=== PATIENT | female | born 1995 | race Caucasian/White ===

== ENCOUNTER 2024-01-11 17:45 | Outpatient (RCR) | payer OTHER, SELFPAY ==
[2024-01-11 18:56] VITALS: BP 114/58; PULSE 81
== END 2024-04-10 23:59 | disposition home or self-care (01) ==
LOC: ANHOBOP 17:45
PROVIDERS: Visit Provider Obstetrics & Gynecology
DX: O36.8190 Decreased fetal movements, unspecified trimester, not applicable or unspecified (principal)
CPT/HCPCS: 59025

== ENCOUNTER 2024-02-16 14:49 | Outpatient (RCR) | payer OTHER, SELFPAY ==
[2024-02-14 17:59] LABS: Basophils Absolute Auto 0.1 K/mm3 (0.0-0.1); Eosinophils Absolute Auto 0.1 K/mm3 (0-0.3); Eosinophils Percent Auto 0.9 % (0-4.4); Hematocrit 35.6 % (37.0-47.0); Immature Granulocyte Absolute 0.83 K/mm3 (0.00-0.031); Immature Granulocyte Percent A 6.8 % (0-0.5); Lymphocytes Absolute Auto 2.15 K/mm3 (0.9-3.2); Lymphocytes Percent Auto 17.6 % (18.3-44.2); Mean Corpuscular HGB Conc 33.7 g/dl (32-36); Mean Corpuscular Hemoglobin 29.9 pg (26-34); Mean Corpuscular Volume 88.6 fl (80-100); Mean Platelet Volume 10.4 fl (7.4-10.4); Monocytes Absolute Auto 0.9 K/mm3 (0.1-0.6); Monocytes Percent Auto 7.5 % (2.6-8.5); Neutrophils Absolute Auto 8.1 K/mm3 (1.3-6.7); Neutrophils Percent Auto 66.2 % (45.5-73.1); Platelet Count Result 242 k/mm3 (150-375); Red Blood Count 4.02 M/mm3 (4.2-5.4); White Blood Count 12.2 K/mm3 (4.5-10.0)
[2024-02-14 18:09] LABS: Glucose 1 Hour PP 50gm Dose 116 mg/dL
[2024-02-14 18:19] LABS: Anisocytosis 1+; Hypochromasia 1+; Platelet Estimate Adequate (Adequate); Schistocytes None Seen
[2024-02-14 18:33] LABS: Free T4 Free Thyroxine 0.73 ng/dL (0.78-2.19)
[2024-02-14 18:50] LABS: HIV 1/2 Ab P24 Ag Result Negative (Negative)
[2024-02-15 05:57] LABS: T3 Free 2.8 pg/mL (2.3-4.2)
[2024-02-15 06:34] LABS: Rapid Plasma Reagin Non-Reactive (NonReactive)
[2024-02-16] MEDS: RHO(D) IMMUNE GLOBULIN 300 MCG/2 ML SYRINGE IM (16:59)
== END 2024-02-16 14:50 | disposition home or self-care (01) ==
LOC: ANHLAB 14:49
PROVIDERS: Visit Provider Obstetrics & Gynecology
DX: Z11.4 Encounter for screening for human immunodeficiency virus [HIV] (principal); Z11.3 Encounter for screening for infections with a predominantly sexual mode of transmission; Z29.13 Encounter for prophylactic Rho(D) immune globulin; O36.0190 Maternal care for anti-D [Rh] antibodies, unspecified trimester, not applicable or unspecified; E03.9 Hypothyroidism, unspecified; Z3A.00 Weeks of gestation of pregnancy not specified
CPT/HCPCS: 36415; 82947; 84439; 84443; 84480; 85025; 85461; 86592; 86703; 86850; 86900; 86901; 90384; 96372; G0432; J2790

== ENCOUNTER 2024-04-07 13:58 | Outpatient (CLI) | payer OTHER, SELFPAY ==
--- NOTE | ~2024-04-07 | US_ITS ---
EXAMINATION: US OB follow up DATE: 04/07/2024 15:11 INDICATION: Encounter for supervision of normal during third trimester. TECHNIQUE: Real-time ultrasound of the pelvis was performed. The interpreting radiologist was not pre sent for the study. COMPARISON: 03/05/2024 FINDINGS: There is a single living fetus in vertex presentation. The placenta is anterior and not low-lying. F etal heart rate is 132 beats per minute (bpm). The amniotic fluid index is 11.9 cm, which is normal (5th%-95%: 6.7-27.7 cm at 36 weeks estimated gestational age). Cervical length measures 4.0 cm in [facility] which is within normal limits however there does appear to be mild V-shaped funneling at the inte rnal cervical os which appeared to resolve on the imaging obtained post voiding although the more cau shan portion of the cervix is now more poorly visualized. The following biometric data were obtained: BPD: 8.8 cm -> 35 weeks 4 days Head circumference: 30.9 cm -> 34 weeks 3 days Abdominal circumference: 30.5 cm -> 34 weeks 3 days Femur length: 6.6 cm -> 34 weeks 1 days These measurements are concordant. Head circumference to abdominal circumference ratio: 1.01 (normal range 0.95-1.11). Estimated weight: 2435 g (+/-) 365 g or 5 lbs. 6 oz. (+/-) 13 oz. IMPRESSION: 1. Single living fetus in vertex presentation with heart rate of 131 bpm. 2. Normal amniotic fluid index of 11.9 cm. 3. Estimated weight is 10th percentile by Hadlock criteria when 05/02/2024 is used as the estima hali date of delivery (ANTONELLA). Please correlate with clinical information or earlier ultrasounds for mos t accurate ANTONELLA. 4. Normal cervical length of 4.0 cm with suggestion of some mild V-shaped funneling at the internal c ervical os on the initial images which appears to resolve on subsequent imaging post voiding. Reviewed, dictated and finalized at location A. NQUENT TAX COLLECTOR IMPRESSION: 1. Single living fetus in vertex presentation with heart rate of 131 bpm. 2. Normal amniotic fluid index of 11.9 cm. 3. Estimated weight is 10th percentile by Hadlock criteria when 05/02/2024 is used as the estimated date of delivery (ANTONELLA). Please correlate with clinica l information or earlier ultrasounds for most accurate ANTONELLA. 4. Normal cervical length of 4.0 cm with suggestion of some mild V-shaped funne ling at the internal cervical os on the initial images which appears to resolve on subsequent imaging post voiding.
--- OUTSIDE RECORDS SUMMARY | 2024-04-07 16:39 | XMS_ITS | Clinical Summary ---
Author Organization [facility] Address [facility] [place] [address] Care Team Providers Care Chronic Specialist Name Role Phone None, Provider MD Primary Care Provider Unavaila ble Allergies No known active allergies Medications levothyroxine (SYNTHROID) 50 MCG tablet Take 1 tablet (50 mcg total) by mouth every morning. Active vitamin, low iron, ( VITAMIN WITH IRON) 27-0.8 MG tablet Take 1 tablet by mouth daily. Active fish oil (OMEGA-3 FATTY ACID) 1000 MG Cap capsule Take 1 capsule (1,000 mg total) by mouth 2 (two) times daily. Active Nutritional Supplements (PEPTINEX DT/PREBIOTICS OR) Active Probiotic Product (CULTURELLE PROBIOTICS OR) Activ e Encounters Date Type Department Care Team Description 03/20/2024 3:20 PM AGED OR DISABLED CARER - 03/20/2024 4:27 PM AGED OR DISABLED CARER Hospital Encounter [facility] [place] [address] Juliana Mcduffie DO URI Discharge Disposition: Home or Self Care (Routine Discharge) 03/20/2024 Travel from Last 3 Months Social History Tobacco Use Types Packs/Day Years Used Date Smoking Tobacco: Never Smokeless Tobacco: Never Tobacco Cessation:Counseling Given: Not Answered Alcohol Use Standard Drinks/Week Comments Not Currently 0 (1 standard drink = 0.6 oz pur e alcohol) Estimated Date of Delivery Comme nts Yes 05/02/2024 Sex and Gender Information Value Date Recorded Sex Assigned at Female 03/20/2024 3:17 PM AGED OR DISABLED CARER Legal Sex Female 3:15 PM AGED OR DISABLED CARER Gender Identity Not on file Sexual Orientation Not on file Last Filed Vital Signs Vital Sign Reading Time Taken Comments Blood Pressure 133/87 03/20/2024 3:25 PM AGED OR DISABLED CARER Pulse 87 03/20/2024 4:12 PM AGED OR DISABLED CARER Per D wilfrid Reta Temperature 37.4 C (99.3 F) 03/20/2024 3:25 PM AGED OR DISABLED CARER Respiratory Rate 18 03/20/2024 3:25 PM AGED OR DISABLED CARER Oxygen Saturation 100% 03/20/2024 3:25 PM AGED OR DISABLED CARER Inhaled Oxygen Concentration - - Weight 61.2 kg (135 lb) 03/20/2024 3:25 PM AGED OR DISABLED CARER Height 165.1 cm (5' 5 ) 03/20/2024 3:25 PM AGED OR DISABLED CARER Body Mass Index 22.47 03/20/2024 3:25 PM AGED OR DISABLED CARER Plan of Treatment Health Maintenance Due Date Last Done Comments Cervical Cancer Screening Pa p Smear (Age 30 to 64) Every 3 Years 1993 Annual Physical 1996 Hepatitis C 10/17/2011 DTaP, Tdap and Td Vaccines ( 1 - Tdap) 2012 Hepatitis B Vaccines (1 of 3 - 19+ 3-dose series) 2012 Cervical Cancer Screening Pa p with HPV Testing (Age 30 to 64) Every 5 Years 10/17/2023 Cervical Cancer Screening with HPV 10/17/2023 COVID-19 Vaccine ( - 2023-2 5 season) 2023 Influenza Adult (#1) 2023 HPV Vaccines Aged Out No longer eligi ble based on patient's age to complete this topic Meningococcal B Vaccine Aged Out No l onger eligible based on patient's age to complete this topic Meningococcal Vaccine Aged Out No serge david eligible based on patient's age to complete this topic Pneumococcal Vaccine: Pediat rics (0 to 5 Years) and At-Risk Patients (6 to 64 Years) Aged Out No longer eligible b ased on patient's age to complete this topic RSV Immunization or 60+ Years (No Doses Required) Completed RSV Immunizations Under 20 Months Aged Out No longer eligible based on patient's age to complete this topic Procedures Procedure Name Priority Date/Time Associated Diagnosis Comments STREP A, DNA STAT 03/20/2024 3:30 PM AGED OR DISABLED CARER INFLUENZA A & B STAT 03/20/2024 3:30 PM AGED OR DISABLED CARER STREP A RAPID STAT 03/20/2024 3:30 PM AGED OR DISABLED CARER from Last 3 Months Results * STREP A, DNA (CONFIRMATION ONLY) (03/20/2024 3:30 PM AGED OR DISABLED CARER) SPECIMEN SOURCE THROAT 4:17 PM AGED OR DISABLED CARER [facility] STREP A MOLECULAR NEGATIVE NEGATIVE 025 10:08 PM AGED OR DISABLED CARER [facility] Comment:SPECIMEN NEGATIVE FO R GROUP A STREPTOCOCCUS BY DNA AMPLIFICATION STRUCTURE OF ANTERIOR PORTION OF NECK / Unknown 03/20/2024 3:30 PM AGED OR DISABLED CARER Juliana Mcduffie DO MICROBIOLOGY - GENERAL ORDERA BLES Final Result Performing Organization Address City/State/[facility] Co de Phone Number [facility] [address] [place] [address], [facility] [place] [address], * INFLUENZA A & B (03/20/2024 3:30 PM AGED OR DISABLED CARER) SPECIMEN TYPE NASOPHARYNGEAL SWAB 03/20/2024 3:38 PM AGED OR DISABLED CARER [facility] INFLUENZA A NEGATIVE NEGATIVE 03/20/2024 3:55 PM AGED OR DISABLED CARER [facility] INFLUENZA B NEGATIVE NEGATIVE 03/20/2024 3:55 PM AGED OR DISABLED CARER [facility] Comment: Interpretation: Negative for Influenza A and B. A negative result does not exclude influenza virus infection. If influenza is circulating in your community, a diagnosis of influenza should be considered based on a patient's clinical presentation and empiric antiviral treatment should be considered, if indicated. If more conclusive testing is needed for hospitalized inpatients, follow-up confirmatory testing with RT-PCR requires a separate order. NASOPHARYNGEAL SWAB / Unknown 03/20/2024 3:30 PM AGED OR DISABLED CARER us Juliana Dealkathleen ELMORE MICROBIOLOGY - GENERAL ORDERA BLES Final Result [facility] [address] [place], [place] [phone], * STREP A RAPID (03/20/2024 3:30 PM AGED OR DISABLED CARER) SPECIMEN TYPE THROAT 03/20/2024 3:30 PM AGED OR DISABLED CARER [facility] RAPID STREP TEST NEGATIVE NEGATIVE 03/20/2024 3:45 PM AGED OR DISABLED CARER [facility] STRUCTURE OF ANTERIOR PORTION OF NECK / Unknown 03/20/2024 3:30 PM AGED OR DISABLED CARER us Juliana Dealkathleen ELMORE MICROBIOLOGY - GENERAL ORDERA BLES Final Result Performing Organization Address [facility] Co de Phone Number [facility] [address] [place] [phone], from Last 3 Months Insurance GRAVIE Care Teams Chronic Specialist Relationship Specialty Start Date End Date None, Provider, PCP - General UNKNOWN PHYSICIAN SPECIALTY 03/20/24
== END 2024-04-07 13:59 | disposition home or self-care (01) ==
PROVIDERS: Visit Provider Student in an Organized Health Care Education/Training Program
DX: Z34.90 Encounter for supervision of normal pregnancy, unspecified, unspecified trimester (principal); Z3A.00 Weeks of gestation of pregnancy not specified
CPT/HCPCS: 76816

== ENCOUNTER 2024-04-22 14:15 | Outpatient (RCR) | payer OTHER, SELFPAY ==
[2024-04-11 17:39] VITALS: BP 128/77; PULSE 85
[2024-04-14 16:58] VITALS: BP 123/71; PULSE 85
[2024-04-18 10:46] VITALS: BP 127/70; PULSE 94
--- NOTE | 2024-04-18 12:28 | PC.NURSE ---
Dr Marc notified of BPP 07/27 for breathing and 15% for growth, Ok to CT home.
--- NOTE | ~2024-04-22 | US_ITS ---
EXAMINATION: US OB follow up w BPP DATE: 04/18/2024 12:23 INDICATION: Intrauterine growth restriction. Third trimester. TECHNIQUE: Real-time pelvic ultrasound was performed. COMPARISON: Ultrasound 04/14/2024 FINDINGS: There is a single living fetus in vertex presentation. The placenta is anterior. heart rate is 143 beats per minute (bpm). The deepest vertical pocket is 5.7 cm which is normal. The following biometric data were obtained: Biparietal diameter (BPD): 8.5 cm; head circumference (HC): 32.8 cm; abdominal circumference (AC): 33 .1 cm; femur length (FL): 6.8 cm. These measurements are concordant. Estimated weight is 2816 g +/- 422 g, which correlates with the 15th percentile when 05/02/24 is used as estimated date of delivery. As single measurements, these parameters are each equal to the following estimated gestational ages: BPD: 34 weeks 2 days. HC: 35 weeks 5 days. AC: 37 weeks 0 days. FL: 34 weeks 5 days. estimated gestational age based solely on measurements from this exam is 35 weeks 3 days +/- 2 weeks 3 days. Biophysical profile performed by the technologist: breathing (30 sec sustained breathing in 30 minutes): 0 out of 2 movement (3 gross body movements in 30 minutes): 2 out of 2 tone (one episode of ihpbalb-ngirnleyj-qkupsdi limb movement): 2 out of 2 Amniotic fluid pocket (2 cm): 2 out of 2 Total score: 6 out of 8 IMPRESSION: 1. Single living fetus in vertex presentation. 2. Estimated weight is 2816 g +/- 422 g, which correlates with the 15th percentile when 5 is used as estimated date of delivery. 3. Biophysical profile 6 out of 8. Reviewed, dictated and finalized at location A. ECTIONS ATTORNEY IMPRESSION: 1. Single living fetus in vertex presentation. 2. Estimated weight is 2816 g +/- 422 g, which correlates with the 15th percentile when 05/02/24 is used as estimated date of delivery. 3. Biophysical profile 6 out of 8.
--- NOTE | ~2024-04-22 | US_ITS ---
EXAMINATION: US OB BPP wo non-stress DATE: 04/22/2024 15:29 INDICATION: Intrauterine growth restriction. Third trimester. TECHNIQUE: Real-time pelvic ultrasound was performed. COMPARISON: Ultrasound 12/16/2024 FINDINGS: There is a single living fetus in vertex presentation. The placenta is anterior. heart rate is 133 beats per minute (bpm). The amniotic fluid index is 12.9 cm, which is normal. Biophysical profile performed by the technologist: breathing (30 sec sustained breathing in 30 minutes): 2 out of 2 movement (3 gross body movements in 30 minutes): 2 out of 2 tone (one episode of lpxjazi-fhdibzlyl-nzxjxui limb movement): 2 out of 2 Amniotic fluid pocket (2 cm): 2 out of 2 Total score: 8 out of 8 IMPRESSION: 1. Single living fetus in vertex presentation. 2. Biophysical profile 8 out of 8. Reviewed, dictated and finalized at location A. TERY WORKERS SUPERVISOR
--- NOTE | ~2024-04-22 | US_ITS ---
EXAMINATION: US OB BPP wo non-stress DATE: 04/11/2024 17:38 INDICATION: Intrauterine growth restriction. Third trimester. TECHNIQUE: Real-time pelvic ultrasound was performed. COMPARISON: Ultrasound 04/07/2024 FINDINGS: There is a single living fetus in vertex presentation. The placenta is anterior. heart rate is 138 beats per minute (bpm). The deepest vertical pocket is 6.2 cm which is normal. Biophysical profile performed by the technologist: breathing (30 sec sustained breathing in 30 minutes): 2 out of 2 movement (3 gross body movements in 30 minutes): 2 out of 2 tone (one episode of uxuatuy-wniipzwee-bvpdoqp limb movement): 2 out of 2 Amniotic fluid pocket (2 cm): 2 out of 2 Total score: 8 out of 8 IMPRESSION: 1. Single living fetus in vertex presentation. 2. Biophysical profile 8 out of 8. Reviewed, dictated and finalized at location A. WORKER
--- NOTE | ~2024-04-22 | US_ITS ---
EXAMINATION: US OB BPP wo non-stress DATE: 04/14/2024 17:33 INDICATION: IUGR . TECHNIQUE: Real-time ultrasound of the pelvis was performed. COMPARISON: 04/11/2024 FINDINGS: There is a single living fetus in vertex presentation, longitudinal lie. The placenta is anterior, w ell distant from the cervix. heart rate is 141 bpm. The deepest vertical pocket measures 2.8 cm , which is normal. Biophysical profile performed by the technologist: breathing (30 sec sustained breathing in 30 minutes): 2 out of 2. movement (3 gross body movements in 30 minutes: 2 out of 2. tone (one episode of dcogmqr-pzshvcajs-yrcziqx limb movement): 2 out of 2. Amniotic fluid pocket (2 cm): 2 out of 2. Total score: 8 out of 8. IMPRESSION: Single living fetus in vertex presentation. Biophysical profile 8 out of 8. Reviewed, dictated and finalized at location K. MOTIVE DRIVABILITY TECHNICIAN
[2024-04-22 16:34] VITALS: BP 135/75; PULSE 86
== END 2024-06-11 17:25 | disposition home or self-care (01) ==
LOC: ANHOBOP 14:15
PROVIDERS: Visit Provider Obstetrics & Gynecology
DX: O36.5930 Maternal care for other known or suspected poor fetal growth, third trimester, not applicable or unspecified (principal)
CPT/HCPCS: 59025; 76816; 76819

== ENCOUNTER 2024-04-23 16:13 | Inpatient (IN) | payer OTHER, SELFPAY ==
[2024-04-23] VITALS (26 sets, daily range): BP systolic 105–138; BP diastolic 52–95; PULSE 74–104; BMI 24.3
[2024-04-23 17:30] LABS: Basophils Absolute Auto 0.1 K/mm3 (0.0-0.1); Basophils Percent Auto 0.6 % (0.2-1.2); Eosinophils Absolute Auto 0.1 K/mm3 (0-0.3); Eosinophils Percent Auto 0.8 % (0-4.4); Hematocrit 34.2 % (37.0-47.0); Hemoglobin 11.4 g/dL (12.0-15.0); Immature Granulocyte Absolute 0.26 K/mm3 (0.00-0.031); Immature Granulocyte Percent A 2.2 % (0-0.5); Lymphocytes Absolute Auto 1.93 K/mm3 (0.9-3.2); Lymphocytes Percent Auto 16.5 % (18.3-44.2); Mean Corpuscular HGB Conc 33.3 g/dl (32-36); Mean Corpuscular Hemoglobin 27.8 pg (26-34); Mean Corpuscular Volume 83.4 fl (80-100); Mean Platelet Volume 11.6 fl (7.4-10.4); Monocytes Absolute Auto 0.9 K/mm3 (0.1-0.6); Neutrophils Absolute Auto 8.4 K/mm3 (1.3-6.7); Neutrophils Percent Auto 71.9 % (45.5-73.1); Platelet Count Result 215 k/mm3 (150-375); Red Cell Distribution Width 15.3 % (11.5-14.5); White Blood Count 11.7 K/mm3 (4.5-10.0)
--- NOTE | 2024-04-23 17:39 | LDADM ---
This patient, Pily Maldonado, was admitted to Labor/Delivery/Recovery 106 on 04/23/24 at 16:13. Plans for labor, pain management and were discussed with patient. Patient/family oriented to hospital policies and general routines including ID bracelet, bed and alarms, visiting hours, pain management, procedures, bathroom and other care routines, personal items, smoking policy, room service/diet and guest tray routines, security routines, and visiting hours. Patient/Family are encouraged to report perceived risks to care and to ask questions if they do not understand what they are told or what they should do. See OBIX for further documentation.
--- OUTSIDE RECORDS SUMMARY | 2024-04-23 17:43 | XMS_ITS | Clinical Summary ---
Author Organization [facility] Address formerly [facility] [place] [address] Care Team Providers Care Wood Patternmaker Name Role Phone None, Provider MD Primary [...] Department Care Team Description 03/20/2024 3:20 PM BOILERHOUSE MECHANIC - 03/20/2024 4:27 PM BOILERHOUSE MECHANIC Hospital Encounter [facility] [place] [address] Juliana Mcduffie DO URI Discharge Disposition: Home [...] Sex Assigned at Female 03/20/2024 3:17 PM BOILERHOUSE MECHANIC Legal Sex Female 3:15 PM BOILERHOUSE MECHANIC Gender Identity Not on file Sexual Orientation Not on file Last Filed Vital Signs Vital Sign Reading Time Taken Comments Blood Pressure 133/87 03/20/2024 3:25 PM BOILERHOUSE MECHANIC Pulse 87 03/20/2024 4:12 PM BOILERHOUSE MECHANIC Per D wilfrid Reta Temperature 37.4 C (99.3 F) 03/20/2024 3:25 PM BOILERHOUSE MECHANIC Respiratory Rate 18 03/20/2024 3:25 PM BOILERHOUSE MECHANIC Oxygen Saturation 100% 03/20/2024 3:25 PM BOILERHOUSE MECHANIC Inhaled Oxygen Concentration - - Weight 61.2 kg (135 lb) 03/20/2024 3:25 PM BOILERHOUSE MECHANIC Height 165.1 cm (5' 5 ) 03/20/2024 3:25 PM BOILERHOUSE MECHANIC Body Mass Index 22.47 03/20/2024 3:25 PM BOILERHOUSE MECHANIC Plan of Treatment Health Maintenance Due Date [...] STREP A, DNA STAT 03/20/2024 3:30 PM BOILERHOUSE MECHANIC INFLUENZA A & B STAT 03/20/2024 3:30 PM BOILERHOUSE MECHANIC STREP A RAPID STAT 03/20/2024 3:30 PM BOILERHOUSE MECHANIC from Last 3 Months Results * STREP A, DNA (CONFIRMATION ONLY) (03/20/2024 3:30 PM BOILERHOUSE MECHANIC) SPECIMEN SOURCE THROAT 4:17 PM BOILERHOUSE MECHANIC [facility] STREP A MOLECULAR NEGATIVE NEGATIVE 025 10:08 PM BOILERHOUSE MECHANIC [facility] Comment:SPECIMEN NEGATIVE FO R GROUP A STREPTOCOCCUS BY DNA AMPLIFICATION STRUCTURE OF ANTERIOR PORTION OF NECK / Unknown 03/20/2024 3:30 PM BOILERHOUSE MECHANIC Juliana Mcduffie DO MICROBIOLOGY - GENERAL ORDERA BLES Final Result Performing Organization Address City/State/[facility] Co de Phone Number [facility] [address] [place] [address], [facility] [place] [address], * INFLUENZA A & B (03/20/2024 3:30 PM BOILERHOUSE MECHANIC) SPECIMEN TYPE NASOPHARYNGEAL SWAB 03/20/2024 3:38 PM BOILERHOUSE MECHANIC [facility] INFLUENZA A NEGATIVE NEGATIVE 03/20/2024 3:55 PM BOILERHOUSE MECHANIC [facility] INFLUENZA B NEGATIVE NEGATIVE 03/20/2024 3:55 PM BOILERHOUSE MECHANIC [facility] Comment: Interpretation: Negative for Influenza A and [...] NASOPHARYNGEAL SWAB / Unknown 03/20/2024 3:30 PM BOILERHOUSE MECHANIC us Juliana Dealkathleen ELMORE MICROBIOLOGY - GENERAL ORDERA BLES Final Result [facility] [address] [place], [place] [id number], * STREP A RAPID (03/20/2024 3:30 PM BOILERHOUSE MECHANIC) SPECIMEN TYPE THROAT 03/20/2024 3:30 PM BOILERHOUSE MECHANIC [facility] RAPID STREP TEST NEGATIVE NEGATIVE 03/20/2024 3:45 PM BOILERHOUSE MECHANIC [facility] STRUCTURE OF ANTERIOR PORTION OF NECK / Unknown 03/20/2024 3:30 PM BOILERHOUSE MECHANIC us Juliana Dealkathleen ELMORE MICROBIOLOGY - GENERAL ORDERA BLES Final Result Performing Organization Address [facility] Co de Phone Number [facility] [address] [place] [phone], from Last 3 Months Insurance GRAVIE Care Teams Wood Patternmaker Relationship Specialty Start Date End Date None, Provider, PCP - General UNKNOWN PHYSICIAN SPECIALTY 03/20/24
[2024-04-23 18:13] LABS: Syphilis IgG/IgM Antibody Negative (Negative)
[2024-04-23 18:26] LABS: HIV 1/2 Ab P24 Ag Result Negative (Negative)
[2024-04-23] MEDS: DINOPROSTONE 10 MG VAG INSERT VAGINAL (19:06)
--- NOTE | 2024-04-23 19:55 | WPDHPUPDATE1 ---
History and Physical Update Update Date/Time: 04/23/24 19:55 28 yo who presents for IOl at 38w5d for IUGR History and Physical has been reviewed, including an updated exam of the patient. There are NO changes in the patient's condition. Risks, benefits, and alternatives have been discussed and questions answered. Patient agrees to proceed with procedure. - Hypothyroidism; levo 50mcg; thyroid studies qTrimester - Underweight - Varicella non-immune - RH negative: will need rhogam at 28 wks. - Ashkenazi Denominational descent - IUGR; EFW 10%ile A/P: fetus measured IUGR on US at 37w with EFW 10%. compliant with testing admit to L&D routine admission orders Rh neg, will need rhogam PP GBS neg plan for cervidil IOL continuous EFM may have epidural PRN
[2024-04-24] VITALS (157 sets, daily range): BP systolic 81–164; BP diastolic 43–121; PULSE 33–252; RESP 16; TEMP 36.6–37.5; O2SAT 77–100
[2024-04-24] MEDS: LACTATED RINGERS 1,000 ML 125 ML IV CONT ×3 (03:23→09:45)
[2024-04-24] MEDS: TERBUTALINE SULFATE 1 MG/ML VIAL 0.25 MG SUB-Q (04:10)
[2024-04-24] MEDS: ONDANSETRON INJ 4 MG/2 ML VIAL IV PUSH (05:01)
[2024-04-24] MEDS: LEVOTHYROXINE SODIUM 50 MCG TABLET PO (05:32)
--- NOTE | 2024-04-24 07:14 | PM.OBPNLAB ---
Pain Control Date/time seen: 04/24/24 07:14 Pain control: epidural Pelvic Exam Dilation (cm): 2 Effacement (%): 80 station: -2 Amniotic membrane status: Intact Contractions Monitor mode: External Contraction pattern: Regular Contraction intensity: Moderate Status status: Category l Assessment and Plan Assessment: induction ongoing Comments: Cooks cervical balloon was placed, incidental AROM with placement, clear fluid, will augment with pitocin
[2024-04-24] MEDS: OXYTOCIN 30 UNITS/NS 500 ML 30 UNITS/500 ML BAG 6 UNITS IV CONT (08:41)
--- NOTE | 2024-04-24 09:15 | PM.OBPNLAB ---
Pain Control Date/time seen: 04/24/24 09:15 Pelvic Exam Dilation (cm): 9 Effacement (%): 100 station: 0 Amniotic membrane status: Ruptured Contractions Monitor mode: External Contraction pattern: Regular Contraction intensity: Moderate Status status: Category ll Comments: Called patient role for prolonged heart tone deceleration. Pitocin had just been started and patient had been repositioned. heart tones dropped to the 60s for 10 min. Assessment and Plan Assessment: induction ongoing Comments: Upon entering the room the patient was positioned on her right side, supplemental oxygen was being administered. Pitocin had been discontinued. heart tones had recovered to a baseline of 130 with moderate variability. Cervix was examined and found be 9 cm to almost complete with contractions. head was well engaged. heart tones remained at baseline over the next several contractions. One acceleration was noted. Prolonged heart tones discussed with patient and partner in the room. Discussed that heart tones had recovered with interventions. Cervix now almost complete. Discussed intolerance to labor. Will hold Pitocin at this time. Will continue to monitor heart tones. Discussed emergent delivery for any further intolerance of labor. Risks, benefits, alternatives discussed. Patient and partner consented for urgent . Will attempt vaginal delivery with complete dilation.
[2024-04-24] MEDS: OXYTOCIN 30 UNITS/NS 500 ML 30 UNITS/500 ML BAG 125 UNITS IV CONT (10:51)
--- NOTE | 2024-04-24 11:19 | PM.OBPRVD ---
OB - Vaginal Delivery Note Procedure Delivery date: 04/24/24 Events: Intrauterine Growth Restriction (IUGR) Induction method: Per Cervidil Protocol Delivery augmentation: Rupture of Membranes and Pitocin Delivery monitor: External FHT and External Uterine Route of delivery: Episiotomy description: None Laceration Description: None Specimen: Yes (placenta) Quantitative Blood Loss (ml): 150 Anesthesia type: Epidural Disposition: Floor Complications: No immediate complications Narrative: Patient pushed for a spontaneous vaginal delivery. The fetus was delivered atraumatically. The cord was clamped and cut and the infant was handed off to the pediatric team. The cord was double clamped and cut and a segment of cord was collected for cord gases. Cord blood was collected for blood type and Coomb's testing. The placenta delivered spontaneously and was noted to be intact. The perineum was inspected and noted to be intact. The uterus was firm and good hemostasis was noted. Baby Date of : 04/24/24 Time of : 10:16 Gestational Age by Date: 38 gender: Female presentation: vertex position: Right Occiput Anterior Placenta delivery description: Spontaneous Cord Vessel Description: 3 Vessels score one minute: 8 score five minutes: 9
--- NOTE | 2024-04-24 14:00 | OBPPTRN ---
Patient transferred to post room #290 via wheelchair. Support person present. Oriented to unit, room, information board, rooming in, admission packet and security measures. Patient verbalizes understanding.
--- NOTE | 2024-04-24 15:30 | PC.NURSE ---
Introductions were made, then consulted with patient to assess needs related to . Discussed with mother her?plans to feed?her and the?experience so far. Per mother baby is latching well and feeding without pain, she last breastfed around 3pm. Mother has brought her own breast pump, a [employer]ra ([place]) and would like it set up in case she needs to use it, baby is Mark Anthony (+) and she may need to supplement. RN set up her breast pump and instructions were given on cleaning, care, usage, that there should be no pain, pumping schedule for milk production, collection, and storage of human milk. Patient was assessed for correct placement, flange size (both nipples measured 20mm, will use 24 flange), to pump for comfort and nipple stretching/stimulation for adequate milk production every 3 hours (8 times in 24 hours) 1-2 times at night. Parents are encouraged to record the pumping schedule on the feeding sheet if used.?Mother voiced understanding of the education shared along with mom/baby guide and the pump measurement, flange fit handout for additional resource information. Resources provided for inpatient and outpatient services with the feeding sheet, mom/baby guide and name written on the communication board. Mother voiced understanding of information and will call if there is a request for assistance. Reported to the Primary RN.
[2024-04-25 05:18] LABS: Hematocrit 34.5 % (37.0-47.0); Hemoglobin 10.9 g/dL (12.0-15.0)
[2024-04-25] MEDS: LEVOTHYROXINE SODIUM 50 MCG TABLET PO (07:07)
[2024-04-25] MEDS: MULTIVIT/MIN/PREN/FOL AC/IRON TABLET 1 TAB PO (07:07)
[2024-04-25] MEDS: DOCUSATE SODIUM 100 MG CAPSULE PO (07:08)
--- NOTE | 2024-04-25 07:30 | PC.NURSE ---
Consulted with patient to assess needs related to . Discussed with mother her successes, concerns and any questions she has. Mother concerned latch was not deep enough, she had felt some pinching . We reviewed working with the , supporting breast, protecting her nipples with an optimal deep latch, good positioning, and good hand washing. Encouraged understanding the benefits of skin to skin, responding to feeding cues, frequencies of feeding 8-12 times in 24 hours (approximately 2-3 hours), duration of feedings, milk production, intake/output feeding sheet and signs of adequate intake encouraging swallowing at the breast. Reviewed positioning and alignment, supporting breast, off-centered (asymmetrical latch) and leading with the chin with big, open, wide gape. Infant latched optimally to the [left] breast in [cross cradle] position. Education given to the mother of how to visualize the suckling (with good rocking jaw motion) swallows (dropping of the lower jaw) and how to listen for drinking at the breast (the ka sound). The infant was [able] to maintain latch without discomfort to mother. Nipple care reviewed with optimal latch, good positioning and using clean hands when touching her breast. Resources used to facilitate learning were used from the [visual handouts/ tool/mom and baby guide]. Mother voiced understanding of the education shared, to call for assistance if the does not latch or if there is discomfort with . Reported to the Primary RN.
[2024-04-25 07:50] VITALS: BP 131/63; PULSE 76; RESP 16; TEMP 36.8; O2SAT 99
--- NOTE | 2024-04-25 09:05 | WPDANLDPN2 ---
Anes-Prog Note L&D Date/Time: 04/25/24 09:05 Comfortable throughout: labor and delivery Neuraxial method: epidural Epidural/Spinal procedure site: clean & non-tender Neuro status: Neuro function grossly intact. Cardiovascular status: normal Respiratory status: normal Airway patency: baseline Mental status: baseline Post-Op hydration status: normal Vital Signs: Last Vital Signs Temp 36.8 C 04/24/24 20:00 Pulse 87 04/24/24 20:00 Resp 16 04/24/24 20:00 BP 119/76 04/24/24 20:00 Pulse Ox 100 04/24/24 20:00 O2 Del Method Room Air 04/24/24 16:20 Pain score (VAS): 1 I/O: Intake & Output 04/24/24 04/25/24 04/25/24 23:59 07:59 15:59 Intake Total 100 Balance 100 Post-procedural complaints: none Patient feedback: Patient satisfied with anesthetic care.
--- NOTE | 2024-04-25 12:48 | PM.OBPNVD ---
OB - PN: Subj Subjective Date/time seen: 04/25/24 12:48 S: Overall doing well. Breast-feeding is going well. Feeling some pressure and discomfort vaginally but no bleeding or pain of significance O: VSS afebrile Abdomen: Positive bowel sounds soft Fundus: Appropriately tender Labs noted A: day 1 status post vaginal delivery P: Routine care OB - PN: Obj Data Labs 04/25/24 04:18 Labs: Laboratory Results - last 24 hr 04/25/24 04:18 Hgb 10.9 L Hct 34.5 L Blood Type O Negative Antibody Screen TNP Screen Negative Baby's Blood Type A pos Baby's ANIYAH Positive Doses of RhIg Required 1 OB - PN A/P Time Spent With Patient Time: Total time spent is greater than 50% in coordination of care (as documented) at patient's floor/unit and/or counseling patient:
[2024-04-25] MEDS: RHO(D) IMMUNE GLOBULIN 300 MCG/2 ML SYRINGE IM (17:53)
[2024-04-25 20:30] VITALS: BP 124/74; PULSE 88; RESP 14; TEMP 36.8; O2SAT 100
[2024-04-26 08:00] VITALS: BP 136/73; PULSE 91; RESP 16; TEMP 36.7; O2SAT 99
--- NOTE | 2024-04-26 08:24 | PM.OBDSVD ---
DS: Admitting Diagnosis Discharge Date 04/26/2024 Admitting Diagnosis DS: Discharge Diagnosis Discharge Diagnosis (1) , delivered: Code(s): O80 - Encounter for full-term uncomplicated delivery Status: Acute OB - DS: Summary OB Procedures : NST OB Procedures Intrapartum: Spontaneous Vag Delivery OB Procedures: : None Peripartum Data Laceration Description: None Episiotomy description: None Time Spent with Patient Time attestation: Total time spent providing and/or coordinating discharge services: DS: Data Data Completed and Pending Pending studies at discharge: Pending at discharge 04/24/24 11:31 Surgical [PTH] Routine Labs on day of discharge: Labs from last 24 hours 04/25/24 04:18 Blood Type O Negative Antibody Screen TNP Screen Negative Baby's Blood Type A pos Baby's ANIYAH Positive Doses of RhIg Required 1 Discharge Plan Discharge Discharging Clinician: Heriberto Rainey Patient Disposition: Home, Self-Care Activity: may shower, as tolerated and pelvic rest Diet: as tolerated Patient Instructions: Antibiotic Form Patient Language: [place]e Stand Alone Forms: General Discharge Information Follow-up/Referrals: Rigoberto Marc MD [Physician] - 4 Weeks Discharge Medications: New ibuprofen 600 mg Tablet 600 mg PO Q6H PRN (Reason: Cramping) Qty: 30 0RF Continued PNV [id number] fumarate-FA [] 28 mg iron- 800 mcg tablet 1 tablet PO DAILY levothyroxine 50 mcg tablet 50 mcg PO DAILY Qty: 90 0RF Date of admission: 04/23/24 16:13 Primary Care Provider: PHYSICIAN,CREDIT CHARGE AUTHORIZER Admitting Provider: Rigoberto Marc Attending physician on admission: Rigoberto Marc Condition: Stable
--- NOTE | 2024-04-26 08:30 | PC.NURSE ---
Introductions were made, then consulted with patient to assess needs related to . Discussed with mother her?plans to feed?her and the?experience so far. She has been nursing consistently with one supplementation of formula this morning for a low glucose. Baby has been under bili lights since yesterday and is increasingly sleepy. Mom had a blood blister on her right nipple that appears to have resolved. She was given a nipple shield due to nipple tenderness but does not need it to maintain a latch. Advised that the shield could possibly cause friction to the nipple and should be used with caution. Parents are well informed and father is supportive. Patient says her breast are feeling full today and we will work on latch and/or stimulation for the right breast. Resources provided for inpatient and outpatient services with the feeding sheet, mom/baby guide and name written on the communication board. Mother voiced understanding of information and will call when there is a request for assistance. Reported to the Primary RN.
--- NOTE | 2024-04-26 12:30 | PC.NURSE ---
Patient viewed the discharge video Mother & Baby Care, The First Two Weeks . Patient was given the opportunity and encouraged to ask questions. Patient verbalized understanding of information shared and has been given the mother/baby guide for home reference.
== END 2024-04-26 14:20 | disposition home or self-care (01) | DRG 807 ==
LOC: ANHOB2 04-26 08:26 → ANHLDR 04-29 06:19 → ANHOB2 04-29 06:19
PROVIDERS: Admitting Provider Student in an Organized Health Care Education/Training Program; Visit Provider Obstetrics & Gynecology
DX: O36.5930 Maternal care for other known or suspected poor fetal growth, third trimester, not applicable or unspecified (principal); Z37.0 Single live birth; Z3A.38 38 weeks gestation of pregnancy; O26.893 Other specified pregnancy related conditions, third trimester; Z67.91 Unspecified blood type, Rh negative; O99.284 Endocrine, nutritional and metabolic diseases complicating childbirth; E03.9 Hypothyroidism, unspecified; O36.8330 Maternal care for abnormalities of the fetal heart rate or rhythm, third trimester, not applicable or unspecified
CPT/HCPCS: 36415; 85014; 85018; 85025; 85461; 86593; 86703; 86850; 86880; 86900; 86901; 88307; 90384; A9270; G0432; J2405; J2590; J2790; J2795; J3105; J7120